=== PATIENT | male | born 1970 | race Caucasian/White ===

== ENCOUNTER → 2021-06-18 10:41 | Outpatient (BNVA) | payer OTHER, SELFPAY | PROVIDERS: Family Provider Family Medicine; PCP Family Medicine; Referring Provider Family Medicine Geriatric Medicine; Visit Provider Nurse Practitioner | DX: G81.94 Hemiplegia, unspecified affecting left nondominant side (principal); R41.0 Disorientation, unspecified; F17.200 Nicotine dependence, unspecified, uncomplicated | CPT/HCPCS: 99204 ==